=== PATIENT | female | born 1975 | race Native Hawaiian/Other Pacific Islander ===

== ENCOUNTER 2016-12-24 17:59 | Emergency (ER) | payer OTHER ==
--- NOTE | 2016-12-24 19:30 | ED.PDOC ---
History of Present Illness - General Chief Complaint: Bite: Animal/Insect/Human Stated Complaint: Bee sting on L wrist Time Seen by Provider: 12/24/16 19:16 Source: patient Exam Limitations: no limitations - History of Present Illness Initial Comments: She stated bee stung her on her left wrist 2 days ago at home ;Seen today at urgent care in [place] was given epinephrine and decadron with prescription of epi pen. Timing/Duration: other - 2 days ago Severity: moderate Location: extremities Improving Factors: immobilization Worsening Factors: movement Associated Symptoms: edema Allergies/Adverse Reactions: Allergies Diphenhydramine [From Benadryl] Adverse Reaction (Verified 12/24/16 19:08) Home Medications: Ambulatory Orders Fexofenadine HCl [Noa Allergy] 180 mg PO DAILY #30 tab 12/24/16 Levonorgestrel & Eth Estradiol [Lutera 0.1-20 mg-Mcg] 1 tab PO DAILY 12/24/16 predniSONE [Prednisone] 20 mg PO BID #14 tab 12/24/16 Review of Systems - Review of Systems Constitutional: States: no symptoms reported EENTM: States: no symptoms reported Respiratory: States: no symptoms reported Cardiology: States: no symptoms reported Gastrointestinal/Abdominal: States: no symptoms reported Genitourinary: States: no symptoms reported Musculoskeletal: States: no symptoms reported Neurological: States: numbness - left 5th digit Endocrine: States: no symptoms reported Past Medical History (General) - Patient Medical History Hx Stroke: No Hx Cardiac Disorders: No Hx Congestive Heart Failure: No Hx Pacemaker: No Hx Diabetes: No Hx Cancer: No Hx Hepatitis C: No Surgical History: no surgical history - Vaccination History Hx Tetanus, Diphtheria Vaccination: No Hx Influenza Vaccination: No Hx Pneumococcal Vaccination: No Immunizations Up to Date: No - Social History Hx Tobacco Use: No Hx Chewing Tobacco Use: No Hx Alcohol Use: Yes - Occas Hx Substance Use: No Hx Substance Use Treatment: No Hx Depression: No Feels Threatened In Home Enviroment: No Feels Threatened In a Relationship: No Hx Physical Abuse: No Hx Emotional Abuse: No Hx Suspected Abuse: No - Female History Patient is a Female of Child Bearing Age (10 -59 yrs old): No Patient : No Family Medical History - Family History Grandparents Family History: Unknown Physical Exam - Physical Exam General Appearance: Alert, Anxious, No apparent distress Eyes, Ears, Nose, Throat Exam: PERRL/EOMI, normal ENT inspection, pharynx normal Neck: non-tender, full range of motion, supple Cardiovascular/Chest: normal peripheral pulses, regular rate, rhythm, no edema, no gallop, no JVD Respiratory: chest non-tender, lungs clear, normal breath sounds, no respiratory distress Gastrointestinal/Abdominal: normal bowel sounds, non tender, soft Extremity: inflammation - localized left wrist area not involving hand Neurologic: no motor/sensory deficits, alert, oriented x 3 Skin Exam: warm/dry, normal color Skin Problem Location: upper extremities - left wris area Skin Character: erythema, swelling - wrist joint area positve radial pulses left , tenderness, thickening Lymphatic: no adenopathy Progress - EKG/XRAY/CT CT Ordered: No CT Interpretation Call Back: No Departure - Departure Clinical Impression: Swelling of joint, wrist, left Bee sting reaction Qualifiers: Encounter type: subsequent encounter Injury intent: accidental or unintentional Qualifier Code: (T63.441D) Toxic effect of venom of bees, accidental (unintentional), subsequent encounter Time of Disposition: 19:36 Disposition: Discharge to Home or Self Care Condition: Good Departure Forms: ED Discharge - Pt. Copy, Patient Portal Self Enrollment Instructions: DI for Insect Bites and Stings Prescriptions: Fexofenadine HCl [Noa Allergy] 180 mg PO DAILY #30 tab predniSONE [Prednisone] 20 mg PO BID #14 tab Home Medications: Ambulatory Orders Fexofenadine HCl [Noa Allergy] 180 mg PO DAILY #30 tab 12/24/16 Levonorgestrel & Eth Estradiol [Lutera 0.1-20 mg-Mcg] 1 tab PO DAILY 12/24/16 predniSONE [Prednisone] 20 mg PO BID #14 tab 12/24/16 Additional Instructions: ELEVATE LEFT UPPER EXTREMITY AT BEDTIME AND NEED TO USE ARM SLING IN AM;RETURN TO EMERGENCY ROOM IF SWELLING NUMBNESS/ WORSENS
[2016-12-24 20:07] VITALS: BP 129/72; TEMP 96.4; O2SAT 98
== END 2016-12-24 20:07 | disposition home or self-care (01) ==
LOC: ER 17:59
DX: T63.441A Toxic effect of venom of bees, accidental (unintentional), initial encounter (principal); Z88.8 Allergy status to other drugs, medicaments and biological substances; M25.432 Effusion, left wrist

== ENCOUNTER → 2017-04-24 | Outpatient (CLI) | payer OTHER, SELFPAY ==
--- NOTE | 2017-04-25 14:04 | CT ---
EXAM DESCRIPTION: Head CLINICAL HISTORY: 41 years, Female, HEADACHE COMPARISON: None. FINDINGS: Unenhanced images through the brain. This examination was performed according to our departmental dose optimization program, which includes automatic exposure control, adjustment of the MA and/or kV according to the patient size and/or use of iterative reconstruction technique. There is no intracranial hemorrhage or mass. Ventricles and sulci within normal limits. Extensive mucosal thickening in the ethmoid air cells particularly posteriorly on the right. Moderate sphenoid sinus mucosal thickening. IMPRESSION: Unremarkable evaluation the brain. Moderate ethmoid and sphenoid sinus disease. Electronically signed by: Nba Wong MD 04/25/2017 2:02 PM CDT
== END ==
LOC: CT 13:47
PROVIDERS: ATTEND Family Medicine
DX: R51 Headache (principal)

== ENCOUNTER → 2017-05-09 | Outpatient (CLI) | payer SELFPAY ==
--- NOTE | 2017-05-10 10:07 | CT ---
EXAM DESCRIPTION: Sinuses CT. CLINICAL HISTORY: SINUSITIS COMPARISON: CT scan of the head 04/24/2017. TECHNIQUE: Spiral, axial 2.5 mm scans through the maxillofacial bones without contrast. Dedicated algorithm with coronal and sagittal 2.0 mm reconstructions. Total Exam DLP: 381.42 mGy-cm. This exam was performed according to our departmental CT dose-optimization program which includes automated exposure control, adjustment of the mA and/or kV according to patient size and/or use of iterative reconstruction technique; to reduce radiation dose to as low as reasonably achievable (ALARA). FINDINGS: Small air-fluid level in the right maxillary antrum. No significant mucoperiosteal thickening bilaterally. Bilateral ostiomeatal units are patent with minimal narrowing of the left ostiomeatal. Almost total opacification of the posterior right ethmoid air cell. Bilateral partial blockage of the sphenoid nasal ostia with air-fluid level in the large left sphenoid air cell. Anterior ethmoid air cells and frontal sinuses are well aerated. Right deviation of the nasal septum. Sherwin bullosa in the left middle turbinate. Minimal narrowing of the bilateral nasal passageways. Included mastoid air cells are well aerated. No mass effect or effacement of the posterior nasopharyngeal structures. IMPRESSION: 1. Small air-fluid level in the right maxillary antra and air-fluid level in the left sphenoid sinus. Near opacification of posterior right ethmoid air cell. These findings indicate acute sinusitis. Narrowing of the right maxillary ostium. 2. Right septal deviation. Small sherwin bullosa left middle turbinate. Electronically signed by: Vicente Chavis MD 05/10/2017 10:05 AM CDT Workstation: [id number]
== END ==
LOC: CT 10:14
PROVIDERS: ATTEND Otolaryngology
DX: J32.4 Chronic pansinusitis (principal); J34.3 Hypertrophy of nasal turbinates; J34.2 Deviated nasal septum

== ENCOUNTER → 2018-02-05 | Outpatient (CLI) | payer OTHER ==
--- NOTE | 2018-02-05 17:09 | MAM ---
EXAM DESCRIPTION: 3D Screening BILATERAL : Digital Mammography. CLINICAL HISTORY: 42 years Female SCREENING . No personal or family history of breast cancer. Patient states doctor "felt something" superior to the left areola. Nulliparous. Premenopausal. No HRT. COMPARISON: Baseline study at this facility.. No prior reports available. TECHNIQUE: Bilateral CC and MLO projection full-field images, 3-D tomosynthesis digital mammographic technique. CAD not utilized. FINDINGS: The breast parenchymal density pattern is: Heterogeneously dense breast tissue, which may obscure small masses. No skin thickening or nipple retraction bilateral axillary lymph nodes. Focal asymmetry at the 1200 clock position of the left breast approximately 4 cm from the nipple. Not associated with microcalcifications. Focal asymmetry also at the 630-700 clock position of the left breast also approximately 5 cm from the nipple. Single microcalcification. No focal, stellate mass or density, focal asymmetry , and no suspicious microcalcifications right breast. Stable mammograms compared to prior study, taking into account differences in mammographic technique IMPRESSION: BI-RADS CATEGORY: 0 - INCOMPLETE- Need additional imaging evaluation. FOLLOW-UP: Recall for additional imagin-D tomosynthesis full field LM imaging bilateral breasts. Repeat CC full-field 3-D Rossi synthesis right breast. Targeted left breast ultrasound if indicated by diagnostic images.. Written communication concerning the IMPRESSION and Follow-up, will be mailed to the patient and referring health care provider. Electronically signed by: Vicente Chavis MD 02/05/2018 5:08 PM CDT
== END ==
LOC: MAMMO 14:17
PROVIDERS: ATTEND Internal Medicine Cardiovascular Disease
DX: Z12.31 Encounter for screening mammogram for malignant neoplasm of breast (principal)

== ENCOUNTER → 2018-02-06 | Outpatient (CLI) | payer OTHER ==
--- NOTE | 2018-02-07 10:57 | US ---
EXAM DESCRIPTION: Breast,Left: Ultrasound CLINICAL HISTORY:. COMPARISON: Digital screening 3-D tomosynthesis 02/05/2018. Bilateral 3-D tomosynthesis diagnostic mammography on this visit.. TECHNIQUE: Transcutaneous scanning of the left breast utilizing two-dimensional and Doppler modes. Scanning performed by the intensive care medicine specialist and Dr. Chavis. FINDINGS: Scanning at the 1200 clock position of the left breast 3 cm from the nipple. Mostly heterogeneous fibroglandular tissues and minimal fatty echotexture. Scanning at the 800 clock position 4 cm from the nipple. Heterogeneous fibroglandular and fatty echotexture. Well-defined hypoechoic mass with echogenic center measuring 5.5 mm. Posterior enhancement features. Parallel orientation. Most likely a lymph node. No distinct solid mass or cyst. No large calcifications or parenchymal edema. No overlying skin changes. No abnormal Doppler vascularity. IMPRESSION: 1. Bi-Rads Category 2: Benign. 2. Please refer to bilateral diagnostic 3-D tomosynthesis mammographic examination and report on this visit. The FINDINGS and the FOLLOW-UP plan were reviewed in person with the patient after the examination. Written communication explaining the IMPRESSION and FOLLOW-UP will be mailed to the patient and referring care provider. Electronically signed by: Vicente Chavis MD 02/07/2018 10:55 AM CDT
--- NOTE | 2018-02-07 11:01 | MAM ---
EXAM DESCRIPTION: 3D Diagnostic, Bilateral: Digital Mammography CLINICAL HISTORY: 42 yearsFemaleABNORMAL MAMMO focal asymmetry in the superior and inferior left breast.. COMPARISON: 3-D tomosynthesis bilateral screening mammography 02/05/2018.. Targeted left breast ultrasound following this examination. Report from prior examination also reviewed. TECHNIQUE: Bilateral CC LM projection full-field images, 3-D tomosynthesis digital mammographic technique. CAD not utilized. FINDINGS: The breast parenchymal density pattern is: Heterogeneously dense breast tissue, which may obscure small masses. No skin thickening or nipple retraction right axillary lymph node. Focal asymmetry at the 1200 clock position of the left breast and 800 clock position. Again visualized on the LM full-field tomosynthesis image. Ultrasound: Scanning at the 1200 clock position of the left breast 3 cm from the nipple. Mostly heterogeneous fibroglandular tissues and minimal fatty echotexture. Scanning at the 800 clock position 4 cm from the nipple. Heterogeneous fibroglandular and fatty echotexture. Well-defined hypoechoic mass with echogenic center measuring 5.5 mm. Posterior enhancement features. Parallel orientation. Most likely a lymph node. No distinct solid mass or cyst. No large calcifications or parenchymal edema. No overlying skin changes. No abnormal Doppler vascularity. IMPRESSION: BI-RADS CATEGORY: 2 - BENIGN FINDINGS. FOLLOW UP: Routine digital bilateral screening, one year interval from January 2018. The FINDINGS and the FOLLOW-UP plan were reviewed in person with the patient after the examination. Written communication explaining the IMPRESSION and FOLLOW-UP will be mailed to the patient and referring care provider. According to the [employer], yearly mammograms are recommended starting at age 40 and continuing as long as a woman is in good health. Any breast change noted on a breast self-exam should be reported promptly to the patient's healthcare provider. Breast MRI is recommended for women with an approximately 20-25% or greater lifetime risk of breast cancer, including women with a strong family history of breast or ovarian cancer and women who have been treated for Hodgkin's disease. A negative mammographic report should not delay tissue diagnosis in patients with significant clinical history or physical findings. Extremely dense breast tissue limits the sensitivity of digital mammography. Electronically signed by: Vicente Chavis MD 02/07/2018 10:59 AM CDT
== END ==
LOC: RAD 14:04
PROVIDERS: ATTEND Family Medicine
DX: R92.8 Other abnormal and inconclusive findings on diagnostic imaging of breast (principal)
CPT/HCPCS: 76641; 77066; G0279

== ENCOUNTER → 2019-08-11 | Outpatient (CLI) | payer OTHER | LOC: GMA MATASK 16:49 | PROVIDERS: ATTEND Family Medicine | DX: Z02.89 Encounter for other administrative examinations (principal) ==

== ENCOUNTER → 2020-03-12 | Outpatient (CLI) | payer OTHER ==
--- NOTE | 2020-03-17 15:30 | MAM ---
EXAM DESCRIPTION: 3D Screening BILATERAL : Digital Mammography. CLINICAL HISTORY: 44 years Female SCREENING . No complaints. No personal or family history of breast cancer. Menarche age 19. No childbirth. Premenopausal. No HRT. Lifetime risk of developing breast cancer (Tyrer-Cuzick model)(%): . 10.0 COMPARISON: Bilateral screening digital breast tomosynthesis January 2018 and diagnostic tomosynthesis the following day. TECHNIQUE: Bilateral CC and MLO projection full-field images, digital tomosynthesis mammographic technique. Bilateral digital 2-D full-field MLO images. CAD available for 2-D images. FINDINGS: The breast parenchymal density pattern is: Heterogeneously dense breast tissue, which may obscure small masses. No skin thickening or nipple retraction. Axillary lymph nodes. Solitary microcalcifications. Nodular fibroglandular changes bilaterally. No new focal, stellate mass or density, focal asymmetry , and no suspicious microcalcifications . Stable mammograms compared to prior study. IMPRESSION: Benign exam. BIRAD CATEGORY: 2 BENIGN FINDINGS. RECOMMENDATIONS: FOLLOW UP: Routine digital bilateral mammographic screening, one year interval from February 2020. Written communication explaining the IMPRESSION and follow-up, will be mailed to the patient and referring health care provider. According to the [employer], yearly mammograms are recommended starting at age 40 and continuing as long as a woman is in good health. Any breast change noted on a breast self-exam should be reported promptly to the patient's healthcare provider. Breast MRI is recommended for women with an approximately 20-25% or greater lifetime risk of breast cancer, including women with a strong family history of breast or ovarian cancer and women who have been treated for Hodgkin's disease. A negative mammographic report should not delay tissue diagnosis in patients with significant clinical history or physical findings. Extremely dense breast tissue limits the sensitivity of digital mammography. Electronically signed by: Vicente Chavis MD 03/17/2020 3:29 PM CDT
== END ==
LOC: MAMMO 08:59
PROVIDERS: ATTEND Obstetrics & Gynecology
DX: Z12.31 Encounter for screening mammogram for malignant neoplasm of breast (principal)